=== PATIENT | male | born 1960 | race Caucasian/White ===

== ENCOUNTER → 2020-11-25 | Outpatient (CLI) | payer OTHER ==
[~2020-11-25] MED LIST: BUPRENORPHIN-N1 EACH SL; CLARITIN10 MG PO; ELIQUIS5 MG PO; FLONASE 0.05% N16 GM; GOODY'S EX-STR1 EACH PO; LISINOPRIL20 MG PO; OMNICEF 300 MG300 MG PO; ULTRAM50 MG PO
== END ==
LOC: HEART 5 09:41
DX: R06.00 Dyspnea, unspecified (principal); F17.210 Nicotine dependence, cigarettes, uncomplicated
CPT/HCPCS: 94010

== ENCOUNTER → 2021-01-05 | Outpatient (CLI) | payer OTHER ==
[2021-01-05 16:37] LABS: RED BLOOD COUNT 4.59 M/UL (4.20-5.50); WHITE BLOOD COUNT 4.9 K/UL (4.5-11.0)
[2021-01-05 17:01] LABS: BUN/CREATININE RATIO 23 (0-10)
[2021-01-07 05:14] LABS: HIV SCREEN 4TH GENERATION WRFX Non Reactive (Non Reactive)
[2021-01-07 11:13] LABS: HBSAG SCREEN Negative (Negative); HEP A AB, IGM Negative (Negative); HEP B CORE AB, IGM Negative (Negative); HEP C VIRUS AB 0.2 (0.0-0.9)
== END ==
LOC: LAB 16:15
DX: F11.23 Opioid dependence with withdrawal (principal); I10 Essential (primary) hypertension; M13.80 Other specified arthritis, unspecified site
CPT/HCPCS: 36415; 80053; 80074; 85027; 87389

== ENCOUNTER → 2021-03-24 | Outpatient (CLI) | payer OTHER | LOC: RAD 13:29 | DX: M79.604 Pain in right leg (principal); B19.20 Unspecified viral hepatitis C without hepatic coma | CPT/HCPCS: 73502; 73552 ==

== ENCOUNTER 2021-03-30 07:05 | Observation (INO) | payer OTHER ==
[~2021-03-30] VITALS: Ht 185.4 cm; Wt 89.4 kg
[~2021-03-30 07:05] MED LIST changes: -BUPRENORPHIN-N1 EACH SL; -CLARITIN10 MG PO; -ELIQUIS5 MG PO; -FLONASE 0.05% N16 GM; -GOODY'S EX-STR1 EACH PO; -LISINOPRIL20 MG PO; -OMNICEF 300 MG300 MG PO
[2021-03-30 08:13] LABS: HEMOGLOBIN 12.7 gm/dl (14.0-17.5); RED BLOOD COUNT 4.16 M/UL (4.20-5.50); WHITE BLOOD COUNT 8.1 K/UL (4.5-11.0)
[2021-03-30 08:42] LABS: BUN/CREATININE RATIO 18 (0-10)
[2021-03-30] MEDS ORDERED: FLONASE 0.05% N16 GM (11:19)
[2021-03-30] MEDS ORDERED: BUPRENORPHIN-N1 EACH SL (11:20)
[2021-03-30] MEDS ORDERED: CLARITIN10 MG PO (11:20)
[2021-03-30] MEDS ORDERED: LISINOPRIL20 MG PO (11:20)
[2021-03-30] MEDS ORDERED: GOODY'S EX-STR1 EACH PO (11:51)
[2021-03-31 04:08] LABS: HEMOGLOBIN 12.5 gm/dl (14.0-17.5); RED BLOOD COUNT 4.11 M/UL (4.20-5.50); WHITE BLOOD COUNT 7.4 K/UL (4.5-11.0)
[2021-03-31 04:33] LABS: BUN/CREATININE RATIO 16 (0-10)
[2021-03-31] MEDS ORDERED: ELIQUIS5 MG PO (11:22)
[2021-03-31] MEDS ORDERED: OMNICEF 300 MG300 MG PO (11:22)
== END 2021-03-31 14:38 | disposition home or self-care (01) ==
LOC: ER1 07:05 → CDU 10:03 → MED SURG 4 10:03
PROVIDERS: Emergency Medicine; Physician Assistant; ADMIT Internal Medicine
DX: I26.99 Other pulmonary embolism without acute cor pulmonale (principal); I82.401 Acute embolism and thrombosis of unspecified deep veins of right lower extremity; J18.9 Pneumonia, unspecified organism; I10 Essential (primary) hypertension; B19.20 Unspecified viral hepatitis C without hepatic coma; F17.290 Nicotine dependence, other tobacco product, uncomplicated; F12.10 Cannabis abuse, uncomplicated; Z79.82 Long term (current) use of aspirin; Z79.899 Other long term (current) drug therapy; Z20.822 Contact with and (suspected) exposure to COVID-19
CPT/HCPCS: ECHO; 0240U; 36415; 71045; 80048; 80053; 82550; 82553; 83605; 83690; 84484; 85025; 85610; 85730; 93005; 93306; 93970; 96372; 96374; 96375; 99285; G0378; J0456; J0690; J0696; J1650; J2060; J2270; J2405; J7030; Q9967

== ENCOUNTER 2021-09-09 07:51 | Emergency (ER) | payer OTHER ==
[~2021-09-09 07:51] MED LIST changes: +BUPRENORPHIN-N1 EACH SL; +CLARITIN10 MG PO; +ELIQUIS5 MG PO; +FLONASE 0.05% N16 GM; +GOODY'S EX-STR1 EACH PO; +LISINOPRIL20 MG PO; +OMNICEF 300 MG300 MG PO
== END 2021-09-09 08:36 | disposition home or self-care (01) ==
LOC: ER1 07:51
DX: S61.216A Laceration without foreign body of right little finger without damage to nail, initial encounter (principal); Z23 Encounter for immunization; I10 Essential (primary) hypertension; W45.8XXA Other foreign body or object entering through skin, initial encounter
CPT/HCPCS: 90471; 90715; 99283

== ENCOUNTER → 2021-11-15 | Outpatient (CLI) | payer OTHER | LOC: CT 12:05 | DX: R63.4 Abnormal weight loss (principal) | CPT/HCPCS: Q9967 ==

== ENCOUNTER → 2021-11-23 | Outpatient (CLI) | payer OTHER | LOC: RAD 15:34 | DX: R06.00 Dyspnea, unspecified (principal) | CPT/HCPCS: 71046 ==

== ENCOUNTER → 2021-11-30 | Outpatient (CLI) | payer OTHER | LOC: KOH-I 11-29 08:00 | DX: R63.4 Abnormal weight loss (principal); N20.0 Calculus of kidney; K82.8 Other specified diseases of gallbladder; K86.89 Other specified diseases of pancreas | CPT/HCPCS: 71250 ==

== ENCOUNTER → 2021-12-13 | Outpatient (CLI) | payer OTHER ==
[~2021-12-13] MED LIST changes: +NORFLEX 100 MG100 MG PO; +Voltaren Gel 1 % TOP
[2021-12-14 08:15] LABS: BILIRUBIN, DIRECT 0.12 mg/dL (0.00-0.40); BILIRUBIN, TOTAL 0.4 mg/dL (0.0-1.2); PROTEIN, TOTAL 6.4 g/dL (6.0-8.5)
== END ==
LOC: LAB 09:33
PROVIDERS: Internal Medicine Gastroenterology
DX: R10.13 Epigastric pain (principal)
CPT/HCPCS: 36415; 80076; 82150; 83690

== ENCOUNTER 2021-12-14 06:52 | Emergency (ER) | payer OTHER ==
[~2021-12-14 06:52] MED LIST changes: -NORFLEX 100 MG100 MG PO; -Voltaren Gel 1 % TOP
[2021-12-14] MEDS ORDERED: Voltaren Gel 1 % TOP (09:13)
[2021-12-14] MEDS ORDERED: NORFLEX 100 MG100 MG PO (09:13)
[2021-12-16] MEDS ORDERED: TRAZODONE HCL100 MG PO (06:32)
[2021-12-16] MEDS ORDERED: ASPIRIN CHEWABL81 MG PO (06:32)
== END 2021-12-14 09:56 | disposition home or self-care (01) ==
LOC: ER1 06:52
DX: S46.812A Strain of other muscles, fascia and tendons at shoulder and upper arm level, left arm, initial encounter (principal); I11.9 Hypertensive heart disease without heart failure; W19.XXXA Unspecified fall, initial encounter; Y92.009 Unspecified place in unspecified non-institutional (private) residence as the place of occurrence of the external cause
CPT/HCPCS: 29240; 71045; 73030; 99283

== ENCOUNTER → 2021-12-16 | Day surgery (SDC) | payer OTHER ==
[~2021-12-16] MED LIST changes: +ASPIRIN CHEWABL81 MG PO; +NORFLEX 100 MG100 MG PO; +TRAZODONE HCL100 MG PO; +Voltaren Gel 1 % TOP
== END | disposition home or self-care (01) ==
LOC: OR 05:58
DX: K29.50 Unspecified chronic gastritis without bleeding (principal); K83.8 Other specified diseases of biliary tract; K86.89 Other specified diseases of pancreas; R63.4 Abnormal weight loss; I10 Essential (primary) hypertension; R63.0 Anorexia; R53.83 Other fatigue; Z79.82 Long term (current) use of aspirin; Z20.822 Contact with and (suspected) exposure to COVID-19
CPT/HCPCS: J2704; J3010; J7040